=== PATIENT | male | born 1990 ===

== ENCOUNTER 2024-04-08 23:05 | Emergency (ER) | payer OTHER, SELFPAY ==
[2024-04-08 23:03] VITALS: TEMP 36.6
[2024-04-08 23:17] VITALS: BP 124/87; PULSE 83; RESP 15; O2SAT 99
[2024-04-08 23:57] LABS: Basophils Absolute Auto 0.1 K/mm3 (0.0-0.1); Basophils Percent Auto 0.7 % (0.2-1.2); Eosinophils Percent Auto 0.5 % (0-4.4); Hematocrit 38.2 % (42.0-52.0); Immature Granulocyte Absolute 0.02 K/mm3 (0.00-0.031); Immature Granulocyte Percent A 0.3 % (0-0.5); Lymphocytes Absolute Auto 1.66 K/mm3 (0.9-3.2); Lymphocytes Percent Auto 21.9 % (18.3-44.2); Mean Corpuscular Volume 91.2 fl (80-100); Mean Platelet Volume 10.6 fl (7.4-10.4); Monocytes Absolute Auto 0.6 K/mm3 (0.1-0.6); Monocytes Percent Auto 7.9 % (2.6-8.5); Neutrophils Absolute Auto 5.2 K/mm3 (1.3-6.7); Neutrophils Percent Auto 68.7 % (45.5-73.1); Platelet Count Result 230 k/mm3 (150-375); Red Blood Count 4.19 M/mm3 (4.6-6.20); Red Cell Distribution Width 12.5 % (11.5-14.5); White Blood Count 7.6 K/mm3 (4.5-10.0)
[2024-04-08 23:58] LABS: Add Urine Microscopic? NO; Appearance Urine Clear (Clear); Bilirubin Urine Negative (Negative); Blood Urine Negative (Negative); Color Urine Yellow (Yellow); Glucose Urine UA Negative (Negative); Ketones Urine 1+ mg/dL (Negative); Leukocyte Esterase Ur Negative LEU/UL (Negative); Nitrate Urine Negative (Negative); Protein Urine Negative (Negative); Urobilinogen Urine 0.2 mg/dL (<2.0); pH Urine 6.5 (5.0-9.0)
[2024-04-09 00:17] LABS: Alanine Aminotransferase 14 U/L (6-50); Albumin Level 4.4 g/dL (3.5-5.1); Alkaline Phosphatase 53 U/L (38-126); Anion Gap 7 mmol/L (4-12); Aspartate Amino Transferase 20 U/L (17-59); Bilirubin,Total 0.9 mg/dL (0.2-1.3); Blood Urea Nitrogen 6 mg/dL (9-20); Calcium 8.8 mg/dL (8.4-10.2); Carbon Dioxide 26 mmol/L (22-30); Chloride 103 mmol/L (98-107); Estimated CRCL calculation 122 ml/min; Estimated Glomerular Filt Rate > 60; Glucose 93 mg/dL (65-110); Potassium 4.2 mmol/L (3.4-5.0); Sodium 136 mmol/L (137-145)
[2024-04-09 00:18] LABS: Acetaminophen < 10 ug/mL (10-30); Ethanol < 10 mg/dL (<10); Salicylate < 1.0 mg/dL (2-20)
[2024-04-09 00:30] LABS: Amphetamine Screen Urine Negative (Negative); Barbiturate Screen Urine Negative (Negative); Benzodiazepines Screen Urine Negative (Negative); Cannabinoid Screen Urine Positive (Negative); Cocaine Screen Urine Negative (Negative); Methadone Screen Urine Negative (Negative); Opiate Screen Urine Negative (Negative); Phencyclidine Screen Urine Negative (Negative)
[2024-04-09 00:34] LABS: Influenza A QL RT-PCR Negative (Negative); Influenza B QL RT-PCR Negative (Negative); RSV RNA, RT-PCR Negative (Negative); SARS-CoV-2 RNA PCR Negative (Negative)
--- NOTE | 2024-04-09 00:51 | ED.PSYCH ---
HPI - Psych General Chief Complaint: Psychiatric Symptoms <STORMY Bruce Last Filed: 04/09/24 03:07> Stated Complaint: ANXIETY/SI? <STORMY Bruce Last Filed: 04/09/24 03:07> Time Seen by Provider: 04/09/24 03:24 <STORMY Bruce Last Filed: 04/09/24 03:07> Source: patient <STORMY Bruce Last Filed: 04/09/24 03:07> Mode of arrival: EMS <STORMY Bruce Filed: 04/09/24 03:07> Limitations: no limitations <STORMY Bruce Last Filed: 04/09/24 03:07> History of Present Illness HPI Narrative: Patient is a 33-year-old male who presents the ED via EMS with report of suicidal ideation. Patient reports he has been working in increased amount of over time lately with his job and has been feeling very stressed out with his job. States today he became overwhelmed and somewhat triggered by a co-worker and made a comment along the lines of I wish I had the balls to blow my brains out. EMS was then contacted to bring the patient here. Patient states he does not have any active thoughts of wanting to harm himself. States he has never had these thoughts. States he would never act upon this and wound never try to harm himself. Did not actually feel suicidal, states he said this just in the heat of the moment. Does not have access to guns. Is not diagnosed with depression or anxiety, but does admit to having depression recently. <STORMY Bruce Last Filed: 04/09/24 03:07> Related Data Allergies/Adverse Reactions: Allergies Allergy/AdvReac Type Severity Reaction Status Date / Time No Known Drug Allergies Allergy Unknown Verified 04/09/24 02:40 <STORMY Bruce Last Filed: 04/09/24 03:07> Review of Systems Review of Systems: All systems reviewed & are unremarkable except as noted in HPI. <Lexis Mast PA-C - Last Filed: 04/09/24 03:07> All systems reviewed & are unremarkable except as noted in HPI and below <Lexis Mast PA-C - Last Filed: 04/09/24 03:07> [facility] Social History Social History: Social History Substance use type: marijuana <Lexis Mast PA-C - Last Filed: 04/09/24 03:07> Exam Narrative: GENERAL: Well appearing, thin, non-toxic, in no acute distress. HEAD: Normocephalic, atraumatic. RESPIRATORY: Airway patent, respirations nonlabored. Clear to auscultation bilaterally, no rales, rhonchi, wheezing. CARDIOVASCULAR: Regular rate and rhythm MUSCULOSKELETAL: Moves all extremities. No gross deformities. SKIN: Warm, dry, normal color. NEURO: A&O X3. Speech clear. Cranial nerves II-XII grossly intact. Steady gait. No ataxic movements. PSYCHIATRIC: Somewhat flat affect. Normal interaction. <Lexis Mast PA-C - Last Filed: 04/09/24 03:07> Course GOLF BALL TRIMMER/PA Physician Supervision For this patient encounter, I reviewed the GOLF BALL TRIMMER or PA documentation, treatment plan, and medical decision making and had [id number] time with this patient. I performed all aspects of the MDM as documented. <Jaimie Roberto MD - Last Filed: 04/09/24 05:02> Vital Signs Vital signs: Vital Signs Temperature 97.8 F 04/08/24 23:03 Temperature 97.8 F 04/08/24 23:03 Pulse Rate 83 04/08/24 23:17 Respiratory Rate 15 04/08/24 23:17 Blood Pressure 124/87 04/08/24 23:17 Pulse Oximetry 99 04/08/24 23:17 <Lexis Mast PA-C - Last Filed: 04/09/24 03:07> Vital Signs Temperature 97.8 F 04/08/24 23:03 Temperature 97.8 F 04/08/24 23:03 Pulse Rate 83 04/08/24 23:17 Respiratory Rate 15 04/08/24 23:17 Blood Pressure 124/87 04/08/24 23:17 Pulse Oximetry 99 04/08/24 23:17 <Jaimie Roberto MD - Last Filed: 04/09/24 05:02> MDM - Psych MDM Narrative Medical decision making narrative: Patient presented to ED with reported suicidal statement. Reports he has been increasingly stressed with work. Did not feel suicidal. Does not have any plan or intent to act on this. States it was a heat of the moment. ED psych w/u was initiated. Laboratory studies are unremarkable. Patient was made medically cleared to undergo psychiatric evaluation by crisis team for further disposition. <Lexis Mast PA-C - Last Filed: 04/09/24 03:07> Patient presented to ED with reported suicidal statement. Reports he has been increasingly stressed with work. Did not feel suicidal. Does not have any plan or intent to act on this. States it was a heat of the moment. ED psych w/u was initiated. Laboratory studies are unremarkable. Patient was made medically cleared to undergo psychiatric evaluation by crisis team for further disposition. [place]: Patient was signed out to me pending crisis evaluation. Psych evaluation by our crisis team deemed the patient safe for discharge with safety plan. Patient is agreeable with this plan and feels safe being discharged. He was instructed to return to the emergency department if any new or worsening symptoms develop and to use the resources that were provided to him today by our crisis team and patient is agreeable with this plan. Instructed to follow up with his primary care physician within the next 3-5 days. Discharged in stable condition. <Jaimie Roberto MD - Last Filed: 04/09/24 05:02> Medical Records Attestation: I reviewed the patient's medical records. <Lexis Mast PA-C - Last Filed: 04/09/24 03:07> Lab Data Attestation: I reviewed the patient's lab results. <Lexis Mast PA-C - Last Filed: 04/09/24 03:07> Result diagrams: 04/08/24 23:44 04/08/24 23:44 <STORMY Bruce Last Filed: 04/09/24 03:07> Labs: Lab Results 01/23/25 01/23/25 01/23/25 Range/Units 23:44 23:48 23:49 WBC 7.6 (4.5-10.0) K/mm3 RBC 4.19 L (4.6-6.20) M/mm3 Hgb 13.0 L (14.0-18.0) g/dL Hct 38.2 L (42.0-52.0) % MCV 91.2 (80-100) fl MCH 31.0 (26-34) pg MCHC 34.0 (32-36) g/dl RDW 12.5 (11.5-14.5) % Plt Count 230 (150-375) k/mm3 MPV 10.6 H (7.4-10.4) fl Immature Gran % (Auto) 0.3 (0-0.5) % Neut % (Auto) 68.7 (45.5-73.1) % Lymph % (Auto) 21.9 (18.3-44.2) % [place] % (Auto) 7.9 (2.6-8.5) % Eos % (Auto) 0.5 (0-4.4) % Baso % (Auto) 0.7 (0.2-1.2) % Lymph # (Auto) 1.66 (0.9-3.2) K/mm3 [place] # (Auto) 0.6 (0.1-0.6) K/mm3 Eos # (Auto) 0.0 (0-0.3) K/mm3 Baso # (Auto) 0.1 (0.0-0.1) K/mm3 Abs Immat Gran (auto) 0.02 (0.00-0.031) K/mm3 Absolute Neuts (auto) 5.2 (1.3-6.7) K/mm3 Absolute Nucleated RBC 0.000 (0.0-0.012) K/mm3 Nucleated RBC % 0.0 (0.0-0.2) % Sodium 136 L (137-145) mmol/L Potassium 4.2 (3.4-5.0) mmol/L Chloride 103 (98-107) mmol/L Carbon Dioxide 26 (22-30) mmol/L Anion Gap 7 (4-12) mmol/L BUN 6 L (9-20) mg/dL Creatinine 0.67 L (0.7-1.3) mg/dL Estim Creat Clear Calc 122 ml/min Estimated GFR > 60 (59 - ) Glucose 93 (65-110) mg/dL Calcium 8.8 (8.4-10.2) mg/dL Total Bilirubin 0.9 (0.2-1.3) mg/dL AST 20 (17-59) U/L ALT 14 (6-50) U/L Alkaline Phosphatase 53 (38-126) U/L Total Protein 6.0 L (6.3-8.2) g/dL Albumin 4.4 (3.5-5.1) g/dL TSH 0.470 (0.465-4.680) uIU/mL Urine Color Yellow (Yellow) Urine Appearance Clear (Clear) Urine pH 6.5 (5.0-9.0) Ur Specific [place] 1.010 (1.001-1.035) Urine Protein Negative (Negative) mg/dL Urine Glucose (UA) Negative (Negative) mg/dL Urine Ketones 1+ H (Negative) mg/dL Ur Blood (Man) Negative (Negative) Urine Nitrate Negative (Negative) Urine Bilirubin Negative (Negative) Urine Urobilinogen 0.2 (<2.0) mg/dL Leukocyte Esterase Rfl Negative (Negative) MESERET/UL Salicylates < 1.0 L (2-20) mg/dL Urine Opiates Screen Negative (Negative) Urine Methadone Screen Negative (Negative) Acetaminophen < 10 L (10-30) ug/mL Ur Barbiturates Screen Negative (Negative) Ur Phencyclidine Scrn Negative (Negative) Ur Amphetamine Screen Negative (Negative) U Benzodiazepines Scrn Negative (Negative) Urine Cocaine Screen Negative (Negative) U Cannabinoids Screen Positive A (Negative) Ethyl Alcohol < 10 (<10) mg/dL Influenza A (RT-PCR) Negative (Negative) Influenza B (RT-PCR) Negative (Negative) RSV (RT-PCR) Negative (Negative) SARS-CoV-2 RNA (RT-PCR) Negative (Negative) <Lexis Mast PA-C - Last Filed: 04/09/24 03:07> Lab Results 04/08/24 04/08/24 04/08/24 Range/Units 23:44 23:48 23:49 WBC 7.6 (4.5-10.0) K/mm3 RBC 4.19 L (4.6-6.20) M/mm3 Hgb 13.0 L (14.0-18.0) g/dL Hct 38.2 L (42.0-52.0) % MCV 91.2 (80-100) fl MCH 31.0 (26-34) pg MCHC 34.0 (32-36) g/dl RDW 12.5 (11.5-14.5) % Plt Count 230 (150-375) k/mm3 MPV 10.6 H (7.4-10.4) fl Immature Gran % (Auto) 0.3 (0-0.5) % Neut % (Auto) 68.7 (45.5-73.1) % Lymph % (Auto) 21.9 (18.3-44.2) % [place] % (Auto) 7.9 (2.6-8.5) % Eos % (Auto) 0.5 (0-4.4) % Baso % (Auto) 0.7 (0.2-1.2) % Lymph # (Auto) 1.66 (0.9-3.2) K/mm3 [place] # (Auto) 0.6 (0.1-0.6) K/mm3 Eos # (Auto) 0.0 (0-0.3) K/mm3 Baso # (Auto) 0.1 (0.0-0.1) K/mm3 Abs Immat Gran (auto) 0.02 (0.00-0.031) K/mm3 Absolute Neuts (auto) 5.2 (1.3-6.7) K/mm3 Absolute Nucleated RBC 0.000 (0.0-0.012) K/mm3 Nucleated RBC % 0.0 (0.0-0.2) % Sodium 136 L (137-145) mmol/L Potassium 4.2 (3.4-5.0) mmol/L Chloride 103 (98-107) mmol/L Carbon Dioxide 26 (22-30) mmol/L Anion Gap 7 (4-12) mmol/L BUN 6 L (9-20) mg/dL Creatinine 0.67 L (0.7-1.3) mg/dL Estim Creat Clear Calc 122 ml/min Estimated GFR > 60 (59 - ) Glucose 93 (65-110) mg/dL Calcium 8.8 (8.4-10.2) mg/dL Total Bilirubin 0.9 (0.2-1.3) mg/dL AST 20 (17-59) U/L ALT 14 (6-50) U/L Alkaline Phosphatase 53 (38-126) U/L Total Protein 6.0 L (6.3-8.2) g/dL Albumin 4.4 (3.5-5.1) g/dL TSH 0.470 (0.465-4.680) uIU/mL Urine Color Yellow (Yellow) Urine Appearance Clear (Clear) Urine pH 6.5 (5.0-9.0) Ur Specific [place] 1.010 (1.001-1.035) Urine Protein Negative (Negative) mg/dL Urine Glucose (UA) Negative (Negative) mg/dL Urine Ketones 1+ H (Negative) mg/dL Ur Blood (Man) Negative (Negative) Urine Nitrate Negative (Negative) Urine Bilirubin Negative (Negative) Urine Urobilinogen 0.2 (<2.0) mg/dL Leukocyte Esterase Rfl Negative (Negative) MESERET/UL Salicylates < 1.0 L (2-20) mg/dL Urine Opiates Screen Negative (Negative) Urine Methadone Screen Negative (Negative) Acetaminophen < 10 L (10-30) ug/mL Ur Barbiturates Screen Negative (Negative) Ur Phencyclidine Scrn Negative (Negative) Ur Amphetamine Screen Negative (Negative) U Benzodiazepines Scrn Negative (Negative) Urine Cocaine Screen Negative (Negative) U Cannabinoids Screen Positive A (Negative) Ethyl Alcohol < 10 (<10) mg/dL Influenza A (RT-PCR) Negative (Negative) Influenza B (RT-PCR) Negative (Negative) RSV (RT-PCR) Negative (Negative) SARS-CoV-2 RNA (RT-PCR) Negative (Negative) <Jaimie Roberto MD - Last Filed: 04/09/24 05:02> Discharge Plan Discharge Clinical Impression: Stress Depression Qualifiers: Depression Type: unspecified Qualified Code(s): F32.A - Depression, unspecified <Lexis Mast PA-C - Last Filed: 04/09/24 03:07> Patient Disposition: Home, Self-Care <Lexis Mast PA-C - Last Filed: 04/09/24 03:07> Condition: Stable <Lexis Mast PA-C - Last Filed: 04/09/24 03:07> Instructions: Antibiotic Form, Stress (ED), Depression (ED), Help Prevent Suicide (ED) <Lexis Mast PA-C - Last Filed: 04/09/24 03:07> Additional Instructions: Follow safety plan and utilize resources given to by crisis team. Recommend close follow-up with primary care doctor for further evaluation. Return to the ED if you experience thoughts of wanting to harm yourself or anyone else, severe depression, severe anxiety, or any other symptoms of concern. <Lexis Mast PA-C - Last Filed: 04/09/24 03:07> Patient Language: Slovenian <Lexis Mast PA-C - Last Filed: 04/09/24 03:07> Follow-up/Referrals: Tim Wall MD [Physician] - 3 Days UNKNOWN,DOCTOR [Primary Care Provider] - 1 Week <Lexis aMst PA-C - Last Filed: 04/09/24 03:07> Time of Disposition: 04:57 <Lexis Mast PA-C - Last Filed: 04/09/24 03:07> 04:57 <Jaimie Roberto MD - Last Filed: 04/09/24 05:02>
--- NOTE | 2024-04-09 01:17 | PC.NURSE ---
Pt resting quietly with eyes closed. Offered pt blanket as he was covering himself with his coat. Pt declined. Offered pt water, accepted.
[2024-04-09 02:00] VITALS: BP 125/82; PULSE 79; RESP 17; O2SAT 99
[2024-04-09] MEDS: Please add drug allergy info to patient profile. 1 EACH XX (02:38)
[2024-04-09] MEDS: ACETAMINOPHEN 500 MG TABLET 1000 MG PO (02:39)
[2024-04-09 05:22] VITALS: BP 130/86; PULSE 75; RESP 14; O2SAT 99
[2024-04-09 05:23] VITALS: BP 130/86; PULSE 75; RESP 14; O2SAT 99
== END 2024-04-09 05:26 | disposition home or self-care (01) ==
PROVIDERS: Physician Assistant; Emergency Provider Emergency Medicine
DX: F43.9 Reaction to severe stress, unspecified (principal); F32.A Depression, unspecified; Z11.59 Encounter for screening for other viral diseases
CPT/HCPCS: 36415; 80053; 80143; 80179; 80307; 81003; 82077; 84443; 85025; 87637; 99284; A9270